=== PATIENT | female | born 2000 | race Caucasian/White ===

== ENCOUNTER → 2020-02-16 | Outpatient (CLI) | payer OTHER, SELFPAY ==
[2020-01-11 11:01] VITALS: BMI 15.0
== END | disposition home or self-care (01) ==
LOC: LABSPEC 02-19 12:38
PROVIDERS: PCP Pediatrics; Referring Provider Pediatrics; Visit Provider Pediatrics
DX: Z11.59 Encounter for screening for other viral diseases (principal)
CPT/HCPCS: 87635; 94799; U0003

== ENCOUNTER → 2020-07-05 10:30 | Outpatient (CLI) | payer OTHER, SELFPAY ==
[2020-01-11 11:01] VITALS: BMI 15.0
== END ==
PROVIDERS: PCP Pediatrics; Visit Provider Pediatrics
DX: Z00.00 Encounter for general adult medical examination without abnormal findings (principal)
CPT/HCPCS: 87635; C9803; U0005; U0003

== ENCOUNTER 2022-01-06 19:42 | Emergency (ER) | payer OTHER, SELFPAY ==
[2022-01-06 19:43] VITALS: BP 127/76; PULSE 140; RESP 15; TEMP 36.4; O2SAT 99; BMI 17.2
--- NOTE | 2022-01-06 19:56 | EKG12_ITS ---
Test Reason : Blood Pressure : / mmHG Vent. Rate : 122 BPM Atrial Rate : 122 BPM P-R Int : 152 ms QRS Dur : 074 ms QT Int : 422 ms P-R-T Axes : 062 108 -08 degrees QTc Int : 601 ms Sinus tachycardia Rightward axis Nonspecific T wave abnormality Abnormal ECG Confirmed by ZACKERY LANE, MIA ([id number]), editor greeting card SRIKANTH OCAMPO ([id number]) on 01/09/2022 9:00:50 AM Referred By: Confirmed By:MIA VIZCARRA MD
--- NOTE | 2022-01-06 19:57 | EDS_ITS ---
HPI History of Present Illness Chief Complaint: Palpitations Informant: patient Narrative Narrative: 21-year-old female presenting to the emergency room with palpitations. She states that she woke this morning at 07 100 with vomiting and diarrhea. This is persisted throughout the day. She also developed a fever of up to 102. She took Aleve just prior to arrival. The patient notes that she has been trying to drink some water and had a few bites of cucumber. She notes that she is laid in bed her heart rate has been very variable sometimes in the 50s and 60s and other times near 145. She denies any chest pain shortness of breath. She notes abdominal cramping. No blood in the diarrhea or emesis. She states she took a home COVID test that was negative. PFSH PFSH Home Medications omeprazole 20 mg capsule,delayed release 20 mg PO DAILY 05/24/21 [History Last Taken Unknown] levonorgestrel-ethinyl estradiol 0.1 mg-20 mcg tablet (Aviane) 1 tab PO QDAY #84 tabs 05/26/21 [Rx Last Taken Unknown] ondansetron 4 mg disintegrating tablet 4 mg PO Q6H PRN PRN Nausea #15 tabs 01/06/22 [Rx Last Taken Unknown] Allergy/AdvReac Type Severity Reaction Status Date / Time amoxicillin Allergy Mild rash Verified 01/06/22 19:44 Social History household members: family number of children: 0 current occupational status: employed current occupation: [employer] history of recent travel: No sexually active: Yes Smoking Status: Never smoker alcohol intake: current alcohol intake frequency: a few times a month substance use type: does not use what type of physical activity do you participate in: weight training seatbelt use: always do you feel safe at home: Yes ROS ROS ED Constitutional Constitutional ED: Reports fever(s); Denies chills or weight loss Eyes Eyes: Denies change in vision or diplopia ENT ENT ED: Denies ear pain, rhinorrhea or sore throat Cardiovascular Cardiovascular: Reports palpitations; Denies chest pain, orthopnea or racing heartbeat Respiratory/Chest Respiratory/Chest: Denies cough, dyspnea or orthopnea Gastrointestinal Gastrointestinal: Reports abdominal pain, diarrhea, nausea and vomiting Genitourinary Genitourinary ED: Denies dysuria, hematuria or urinary frequency Musculoskeletal Musculoskeletal: Denies arthralgias or myalgias Integumentary Denies abscess or rash Neurologic Neurologic: Reports headache(s); Denies weakness Psychiatric Psychiatric: Denies anxiety, depression, suicidal ideation or suicidal thoughts Endocrine Endocrinology: Denies polydipsia, polyphagia or polyuria Allergic/Immunologic Allergic/Immunologic ED: Denies mouth swelling, tongue swelling or urticaria EXAM Physical Exam Const Vital Signs: 01/06/22 19:43 01/06/22 19:49 01/06/22 20:17 Temperature 97.6 F L Temperature Source Oral Pulse Rate 140 H 111 H Respiratory Rate 15 Respiratory Effort Normal Blood Pressure 127/76 H Blood Pressure Mean 93 Pulse Ox 99 Oxygen Delivery Method Room Air Positive well nourished and well developed General Appearance ED: well developed HEENT Reports normocephalic, head/scalp atraumatic and moist mucous membranes Eyes PERRL and EOMs intact bilaterally Neck no lymphadenopathy, supple and no JVD Resp normal respiratory effort and clear to auscultation bilaterally Cardio regular rate, regular rhythm and no murmurs Rate: tachycardic GI normal to inspection, nondistended, normoactive bowel sounds and non-tender Palpation: soft Back/Spine no CVA tenderness and normal ROM Extremity normal to inspection General Extremety ED: Negative for edema General Extremity: Negative for edema Neuro oriented x3 and CN's II-XII intact bilaterally Sensorium / Orientation: alert Motor Exam: strength 5/5 throughout Psych mental status grossly normal Mood & Affect: Negative for depressed or tearful Skin no rashes or lesions noted and no wounds MDM MDM MDM Narrative Medical decision making narrative: Basic blood work showed a white count of 5.4. Hemoglobin 10.8 and platelets of 185. Potassium low at 3.1. Glucose 136. Lipase 52 alk phos 44. Patient received 2 L of IV fluids. After the first liter heart rate had decreased from 140 down to 100. Rapid COVID is negative. She is overall feeling better. I will be writing for Zofran. Imodium as needed return if worsening or concerns Lab Data Attestation: I reviewed the patient's lab results. Labs: Laboratory Results - last 24 hr 01/06/22 01/06/22 20:07 20:07 WBC 5.4 RBC 3.93 L Hgb 10.8 L Hct 33.9 L MCV 86.3 MCH 27.5 MCHC 31.9 L RDW Std Deviation 47.9 H RDW Coeff of Stan 15.2 H Plt Count 185 MPV 11.5 Immature Gran % (Auto) 0.200 Neut % (Auto) 84.5 H Lymph % (Auto) 9.6 L Reagan % (Auto) 5.5 Eos % (Auto) 0.0 Baso % (Auto) 0.2 Absolute Neuts (auto) 4.6 Absolute Lymphs (auto) 0.52 L Nucleated RBC % 0 Sodium 135 L Potassium 3.1 L Chloride 102 Carbon Dioxide 22.0 Anion Gap 11 BUN 13 Creatinine 0.68 Estim Creat Clear Calc 90.90 Est GFR (MDRD) Af Amer 140 Est GFR (MDRD) Non-Af 116 BUN/Creatinine Ratio 19.1 Glucose 136 H Calcium 8.4 L Total Bilirubin 0.90 Direct Bilirubin 0.26 AST 24 ALT 25 Alkaline Phosphatase 44 L Total Protein 7.0 Albumin 3.9 Globulin 3.1 Lipase 52 L EKG Initial EKG: Attestation: I personally reviewed and interpreted this EKG as follows: Comments: Sinus tachycardia with a ventricular rate of 122 bpm. Discharge Plan Triage Chief Complaint: Palpitations ED Provider: Reuben Conway Dx/Rx/DC Orders Clinical Impression: Gastroenteritis, Acute dehydration, Acute hypokalemia Instructions: ED Dehydration (Adult), ED Gastroenteritis, Viral (Adult) Prescriptions: New ondansetron [ondansetron] 4 mg tablet,disintegrating 4 mg PO Q6H PRN PRN (Reason: Nausea) Qty: 15 0RF No Action omeprazole 20 mg capsule,delayed release(DR/EC) 20 mg PO DAILY levonorgestrel-ethinyl estrad [Aviane] 0.1-20 mg-mcg tablet 1 tab PO QDAY Qty: 84 4RF Primary Care Provider: Frank Herman Referrals: Frank Herman MD [Primary Care Provider] - As Needed Disposition Disposition: Home, Self Care
[2022-01-06] MEDS: 0.9% Normal Saline 1,000 ML 999 ML IV ×2 (20:05→21:05)
[2022-01-06] MEDS: Ondansetron 4 MG/2 ML Vial IV (20:05)
[2022-01-06 20:17] VITALS: PULSE 111
[2022-01-06 20:20] LABS: Absolute Lymphocyte Count 0.52 X10^3/uL (0.83-4.51); Absolute Neutrophil Count 4.6 X10^3/uL (2.0-7.7); Basophil# 0.01 X10^3/uL; Basophil% 0.2 % (0-1); Hematocrit 33.9 % (37-47); Hemoglobin 10.8 g/dL (12.0-15.0); Lymphocyte # 0.52 X10^3/ul (0.83-4.51); Lymphocyte % 9.6 % (19-41); Mean Corp Hgb Conc 31.9 g/dL (32-36); Mean Corpuscular Hgb 27.5 pg (27.0-32.0); Mean Corpuscular Volume 86.3 fL (81-99); Mean Platelet Vol. 11.5 fl (6.2-12.0); Monocyte% 5.5 % (0-10); NRBC Flagged by Analyzer 0 % (0-5); Neutrophil % 84.5 % (47-70); POSITIVE DIFFERENTIAL YES; Platelet Count 185 K/mm3 (150-450); RBC Distribution Width CV 15.2 % (11.6-14.6); RBC Distribution Width SD 47.9 fl (35.1-43.9); Red Blood Count 3.93 M/mm3 (4.2-5.4); White Blood Count 5.4 K/mm3 (4.4-11.0)
[2022-01-06 20:23] LABS: Differential Indicated SCAN CRITERIA MET
[2022-01-06 20:36] LABS: AST(SGOT) 24 U/L (15-37); Alanine Aminotransfer ALT/SGPT 25 U/L (13-56); Albumin, Serum 3.9 g/dL (3.2-5.0); Alkaline Phosphatase 44 U/L (45-117); Anion Gap 11 (5-15); BUN 13 mg/dL (7-18); BUN/Creat Ratio 19.1 RATIO (10-20); Bilirubin, Direct 0.26 mg/dL (0.00-0.30); Calcium,Total 8.4 mg/dL (8.5-10.1); Chloride 102 mmol/L (98-107); Creatinine, Serum 0.68 mg/dL (0.55-1.02); EST Glomerular Filtration Rate 116 mL/min (>60); Est Glom Filt Rate - Afr Amer 140 mL/min (>60); Globulin 3.1 g/dL (2.2-4.2); Glucose 136 mg/dL (74-106); Lipase 52 U/L (73-393); Potassium 3.1 mmol/L (3.5-5.1); Sodium Level 135 mmol/L (136-145)
[2022-01-06] MEDS: Potassium Chloride Oral Tablet 20 MEQ 40 MEQ PO (20:43)
[2022-01-06 21:10] LABS: Platelet Estimate ADEQUATE (ADEQ)
[2022-01-06 21:11] LABS: Anisocytosis RARE; Red Cell Morphology NORM C+C NORMAL (NORM C&C)
== END 2022-01-06 21:42 | disposition home or self-care (01) ==
PROVIDERS: Emergency Provider Emergency Medicine; PCP Pediatrics; Visit Provider Emergency Medicine
DX: K52.9 Noninfective gastroenteritis and colitis, unspecified (principal); E86.0 Dehydration; E87.6 Hypokalemia
CPT/HCPCS: 80048; 80076; 83690; 85025; 87811; 93005; 96361; 96374; 99283; J7030; A4216; J2405

== ENCOUNTER → 2022-06-11 | Outpatient (CLI) | payer OTHER, SELFPAY ==
--- NOTE | 2022-06-11 11:39 | RAD_ITS ---
EXAM: XR LUMBOSACRAL SPINE COMPLETE WITH FLEXION/EXTENSION, 6 OR MORE VIEWS CLINICAL INDICATION: BACK ACHE TECHNIQUE: Lateral, frontal, oblique and lateral flexion/extension views of the lumbar spine and sacrum. This report was created using [employer] report [employer] technology. COMPARISON: None. FINDINGS: VERTEBRAE: Broad leftward curvature of the thoracolumbar spine. No unusual lytic or sclerotic lesions of bone. Preserved vertebral body height. No fracture. No spondylolisthesis. No significant facet arthropathy. No evidence of mechanical instability with flexion/extension stress. DISC SPACES: No acute findings. Disc spaces are maintained. GASTROINTESTINAL TRACT: Scattered stool throughout the colon. Included bowel gas pattern is non-obstructive. OTHER FINDINGS: No significant arthritic changes. RAD/L/S Spine w Bend Min 6 Vw IMPRESSION: 1. Broad leftward curvature of the thoracolumbar spine. 2. No evidence of the mechanical instability with flexion/extension stress. Electronically Signed: Jesus Manuel Renteria MD at 0:54 EST ,
[2022-06-11 15:09] LABS: Erythrocyte Sedimentation Rate 15 mm/hr (0-30)
[2022-06-11 15:13] LABS: Absolute Lymphocyte Count 1.92 X10^3/uL (0.83-4.51); Absolute Neutrophil Count 3.2 X10^3/uL (2.0-7.7); Basophil# 0.02 X10^3/uL; Basophil% 0.4 % (0-1); Eosinophil# 0.04 X10^3/uL; Eosinophils% 0.7 % (0-5); Hematocrit 37.3 % (37-47); Hemoglobin 11.5 g/dL (12.0-15.0); Lymphocyte # 1.92 X10^3/ul (0.83-4.51); Lymphocyte % 34.2 % (19-41); Mean Corp Hgb Conc 30.8 g/dL (32-36); Mean Corpuscular Volume 87.6 fL (81-99); Mean Platelet Vol. 11.8 fl (6.2-12.0); Monocyte# 0.43 X10^3/uL; Monocyte% 7.7 % (0-10); NRBC Flagged by Analyzer 0 % (0-5); Neutrophil # 3.18 X10^3/uL (2.7-7.7); Neutrophil % 56.6 % (47-70); Platelet Count 274 K/mm3 (150-450); RBC Distribution Width CV 15.5 % (11.6-14.6); RBC Distribution Width SD 49.4 fl (35.1-43.9); Red Blood Count 4.26 M/mm3 (4.2-5.4); White Blood Count 5.6 K/mm3 (4.4-11.0)
[2022-06-11 15:31] LABS: ALB/GLOB Ratio 1.1 RATIO (0.9-2.4); AST(SGOT) 19 U/L (15-37); Alanine Aminotransfer ALT/SGPT 22 U/L (13-56); Albumin, Serum 3.8 g/dL (3.2-5.0); Alkaline Phosphatase 42 U/L (45-117); Anion Gap 5 (5-15); BUN 10 mg/dL (7-18); BUN/Creat Ratio 14.9 RATIO (10-20); CRP < 2.90 mg/L (0.0-3.0); Calcium,Total 8.9 mg/dL (8.5-10.1); Chloride 108 mmol/L (98-107); Creatinine, Serum 0.67 mg/dL (0.55-1.02); EST Glomerular Filtration Rate 117 mL/min (>60); Est Glom Filt Rate - Afr Amer 142 mL/min (>60); Globulin 3.4 g/dL (2.2-4.2); Glucose 94 mg/dL (74-106); Potassium 3.8 mmol/L (3.5-5.1); Protein, Total 7.2 g/dL (6.4-8.2); Rheumatoid Factor < 10.0 IU/mL (<15); Sodium Level 140 mmol/L (136-145)
[2022-06-13 22:10] LABS: ANTINUCLEAR ANTIBODIES DIRECT Negative (Negative)
[2022-06-20 14:17] LABS: HLA B27 Negative (.)
== END | disposition home or self-care (01) ==
PROVIDERS: PCP Family Medicine; Referring Provider Family Medicine; Visit Provider Family Medicine
DX: M43.8X5 Other specified deforming dorsopathies, thoracolumbar region (principal); M54.9 Dorsalgia, unspecified; K21.9 Gastro-esophageal reflux disease without esophagitis
CPT/HCPCS: 36415; 72114; 80053; 81374; 85025; 85652; 86038; 86140; 86431

== ENCOUNTER → 2022-07-28 | Outpatient (CLI) | payer OTHER, SELFPAY ==
--- NOTE | 2022-07-28 08:49 | MRI_ITS ---
STUDY: MRI LUMBAR SPINE WITHOUT CONTRAST REASON FOR EXAM: Female, 21 years old. Curvature of spine TECHNIQUE: Standardized fat and water weighted pulse sequences were obtained in the sagittal and axial planes. COMPARISON: Lumbar spine radiographs 06/11/2022. FINDINGS: T10-T11, T11-T12 and T12-L1: Normal endplates. Normal disc height, hydration and morphology. No ventral extradural defects. Normal central canal and bilateral intervertebral neural foramina. Normal lumbar lordosis. Minimal levoscoliosis of the lumbar spine. Normal conus medullaris that terminates at the T12-L1 disc space level. L1-2: Normal endplates. Normal disc height, hydration and morphology. Normal bilateral facet joints. Normal central canal and bilateral lateral recesses. Normal bilateral intervertebral neural foramina. L2-3: Normal endplates. Normal disc height, hydration and morphology. Normal bilateral facet joints. Normal central canal and bilateral lateral recesses. Normal bilateral intervertebral neural foramina. L3-4: Normal endplates. Normal disc height, hydration and morphology. Normal bilateral facet joints. Normal central canal and bilateral lateral recesses. Normal bilateral intervertebral neural foramina. L4-5: Normal endplates. Normal disc height, hydration and morphology. Normal bilateral facet joints. Normal central canal and bilateral lateral recesses. Normal bilateral intervertebral neural foramina. L5-S1: Normal endplates. Normal disc height, hydration and morphology. Normal bilateral facet joints. Normal central canal and bilateral lateral recesses. Normal bilateral intervertebral neural foramina. Normal visualized sacral ala. Normal visualized paraspinous soft tissue structures. MRI/Spine Lumbar (Routine) IMPRESSION: Minimal levoscoliosis of the lumbar spine otherwise normal unenhanced MR examination of the lumbar spine. Electronically Signed: Logan Julio MD at 9:55 EST ,
== END | disposition home or self-care (01) ==
PROVIDERS: PCP Family Medicine; Visit Provider Family Medicine
DX: M43.9 Deforming dorsopathy, unspecified (principal)
CPT/HCPCS: 72148